=== PATIENT | male | born 2000 | race Caucasian/White ===

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

== ENCOUNTER 2018-08-15 23:38 | Emergency (ER) | payer OTHER ==
[2018-08-16] MEDS ORDERED: SODIUM CHLORIDE 0.9% 1,000 ML IV STA (01:30)
[2018-08-16] MEDS ORDERED: SODIUM CHLORIDE 0.9% 500 ML 500 ML IV STA (01:30)
[2018-08-16 01:42] LABS: Basophils % (A) 0 %; Eosinophils # (A) 0.1 k/uL (0-0.7); Eosinophils % (A) 1 %; HCT 42.8 % (39.0-53.0); Lymphocytes # (A) 1.9 k/uL (1.0-4.8); Lymphocytes % (A) 27 %; MCH 26.8 pg (25.0-35.0); MCHC 32.7 g/dL (31.0-37.0); MCV 82.1 fL (80.0-100.0); Mean Platelet Volume 8.1; Monocytes # (A) 0.4 k/uL (0-1.0); Monocytes % (A) 6 %; Neutrophils # (A) 4.6 k/uL (1.3-7.7); Neutrophils % (A) 64 %; Platelet Count 183 k/uL (150-450); RBC 5.21 m/uL (4.30-5.90); WBC 7.2 k/uL (4.0-11.0)
[2018-08-16 01:51] LABS: Partial Thromboplastin Time 28.1 sec (22.0-30.0)
[2018-08-16 01:52] LABS: ALT 20 U/L (21-72); AST 24 U/L (17-59); African American GFR (CKD) >90 (>60 ml/min/1.73 sqM); Albumin 4.9 g/dL (3.5-5.0); Alkaline Phosphatase 96 U/L (38-126); Anion Gap 10 mmol/L; Blood Urea Nitrogen 19 mg/dL (9-20); Calcium 9.3 mg/dL (8.4-10.2); Carbon Dioxide 27 mmol/L (22-30); Chloride 106 mmol/L (98-107); Glucose 89 mg/dL (74-99); Magnesium 1.9 mg/dL (1.6-2.3); Potassium 3.9 mmol/L (3.5-5.1); Sodium 143 mmol/L (137-145); Total Bilirubin 0.4 mg/dL (0.2-1.3); Total Protein 7.7 g/dL (6.3-8.2)
--- NOTE | 2018-08-16 02:01 | XR ---
EXAM: XR Chest, 2 Views CLINICAL HISTORY: ITS.REASON XR Reason: dysrhythmia TECHNIQUE: Frontal and lateral views of the chest. COMPARISON: None FINDINGS: Hardware: None. Lungs/pleura: Normal. No focal consolidation. No pleural effusion or pneumothorax. Heart/mediastinum: Normal. No cardiomegaly. Soft tissues: Unremarkable. Bones: No acute fracture. Upper abdomen: Normal. IMPRESSION: No acute disease identified.
--- NOTE | 2018-08-16 02:35 | ED ---
Arrhythmia/Palpitations HPI - General Chief Complaint: Arrhythmia/Palpitations Stated Complaint: Palpitations, L Foot infection Time Seen by Provider: 08/16/18 01:02 Source: patient, family Mode of arrival: ambulatory Limitations: no limitations - History of Present Illness Initial Comments: 18-year-old male patient presents to the emergency department today for evaluation of palpitations. Patient states that over the last year he isn't having intermittent episodes of palpitations, shortness of breath, and chest tightness. Patient states that over the last 3 months the episodes are becoming more frequent. Patient states he did have an episode today. Patient states that with the episodes he feels like his heart is racing, his chest becomes tig ht, and he has trouble breathing. Patient states that he was just resting when symptoms started. Denies any nausea or vomiting with this. Denies any dizziness or weakness. Patient does admit to smoking marijuana but states that he has smoked just many times in the past and has never had a reaction. Denies any use of cigarettes. Denies any alcohol use. Denies any use of stimulants such as energy drinks or caffeine. Patient states he follows a very healthy diet. He denies any current symptoms. Patient denies any recent rash, fever, chills, abdominal pain, diarrhea, constipation, back pain, numbness, tingling, hematuria, dysuria, urinary urgency, urinary frequency, headache, visual maria ines nges, or any other complaints. - Related Data Previous Rx's Medication Instructions Recorded Clindamycin HCl 300 mg PO Q6H #28 cap 12/06/17 Sulfamethox-Tmp 800-160Mg [Bactrim 2 each PO Q12HR #28 tab 12/06/17 Ds] Ketoconazole 2% Cream [Nizoral 2%] 1 applic TOPICAL DAILY 14 Days #15 08/16/18 gm Allergies Allergy/AdvReac Type Severity Reaction Status Date / Time Penicillins Allergy Rash/Hives Verified 08/15/18 23:46 piperacillin sodium Allergy Rash/Hives Verified 08/15/18 23:46 [From Zosyn] tazobactam sodium Allergy Rash/Hives Verified 08/15/18 23:46 [From Zosyn] vancomycin Allergy Rash/Hives Verified 08/15/18 23:46 Review of Systems ROS Statement: Those systems with pertinent positive or pertinent negative responses have been documented in the HPI. ROS Other: All systems not noted in ROS Statement are negative. Past Medical History Past Medical History: Asthma History of Any Multi-Drug Resistant Organisms: None Reported Past Surgical History: No Surgical Hx Reported Past Psychological History: ADD/ADHD, Depression Smoking Status: Never smoker Past Alcohol Use History: None Reported Past Drug Use History: None Reported - Past Family History Father Additional Family Medical History / Comment(s): heart disease General Exam Limitations: no limitations General appearance: alert, in no apparent distress, other (Physical well- developed, well-nourished adult male patient in no acute distress. Vital signs upon presentation are temperature 98.4F, pulse 92, respirations 20, blood pressure 132/72, pulse ox 98% on room air.) Eye exam: Present: normal appearance, PERRL, EOMI. Absent: scleral icterus, conjunctival injection, periorbital swelling ENT exam: Present: normal exam, normal oropharynx, mucous membranes moist Respiratory exam: Present: normal lung sounds bilaterally. Absent: respiratory distress, wheezes, rales, rhonchi, stridor Cardiovascular Exam: Present: regular rate, normal rhythm, normal heart sounds. Absent: systolic murmur, diastolic murmur, rubs, gallop, clicks Neurological exam: Present: alert, oriented X3, CN II-XII intact Psychiatric exam: Present: normal affect, normal mood Skin exam: Present: warm, dry, intact, normal color. Absent: rash Course Vital Signs 08/15/18 08/16/18 08/16/18 23:43 01:34 02:47 Temperature 98.4 F 98.2 F Pulse Rate 92 74 80 Respiratory 20 15 18 Rate Blood Pressure 132/72 130/57 111/47 O2 Sat by Pulse 98 96 96 Oximetry Medical Decision Making - Medical Decision Making 18-year-old male patient presents to the emergency department today for evaluation of episodes of palpitations, chest tightness, dyspnea. Patient has a getting these episodes intermittently over the last year, worsening over the last 3 months. He did have one episode today. He denies any exacerbating or relieving factors. States that last approximately 10 minutes. Physical examination is unremarkable. Labs reviewed and are unremarkable. Chest x-ray s hows no acute cardio pulmonary process. EKG showed sinus rhythm. I did discuss the findings and results with the patient. He is instructed to follow-up with a primary care physician for recheck, one has been recommended to him. He is also instructed to follow-up with cardiology for further evaluation. We did discuss Holter monitoring and he should discuss this with his follow-up appointments. Return parameters discussed in detail. He verbalizes understanding and agrees with this plan. - Lab Data Result diagrams: 08/16/18 01:30 08/16/18 01:30 Lab Results 08/16/18 08/16/18 08/16/18 Range/Units 01:30 01:30 01:30 WBC 7.2 (4.0-11.0) k/uL RBC 5.21 (4.30-5.90) m/uL Hgb 14.0 (13.0-17.5) gm/dL Hct 42.8 (39.0-53.0) % MCV 82.1 (80.0-100.0) fL MCH 26.8 (25.0-35.0) pg MCHC 32.7 (31.0-37.0) g/dL RDW 15.0 (11.5-15.5) % Plt Count 183 (150-450) k/uL Neutrophils % 64 % Lymphocytes % 27 % Monocytes % 6 % Eosinophils % 1 % Basophils % 0 % Neutrophils # 4.6 (1.3-7.7) k/uL Lymphocytes # 1.9 (1.0-4.8) k/uL Monocytes # 0.4 (0-1.0) k/uL Eosinophils # 0.1 (0-0.7) k/uL Basophils # 0.0 (0-0.2) k/uL PT 11.0 (9.0-12.0) sec INR 1.0 (<1.2) APTT 28.1 (22.0-30.0) sec Sodium 143 (137-145) mmol/L Potassium 3.9 (3.5-5.1) mmol/L Chloride 106 (98-107) mmol/L Carbon Dioxide 27 (22-30) mmol/L Anion Gap 10 mmol/L BUN 19 (9-20) mg/dL Creatinine 0.74 (0.66-1.25) mg/dL Est GFR (CKD-EPI)AfAm >90 (>60 ml/min/1.73 sqM) Est GFR (CKD-EPI)NonAf >90 (>60 ml/min/1.73 sqM) Glucose 89 (74-99) mg/dL Calcium 9.3 (8.4-10.2) mg/dL Magnesium 1.9 (1.6-2.3) mg/dL Total Bilirubin 0.4 (0.2-1.3) mg/dL AST 24 (17-59) U/L ALT 20 L (21-72) U/L Alkaline Phosphatase 96 (38-126) U/L Troponin I (0.000-0.034) ng/mL Total Protein 7.7 (6.3-8.2) g/dL Albumin 4.9 (3.5-5.0) g/dL TSH 2.310 (0.465-4.680) mIU/L 08/16/18 Range/Units 01:30 WBC (4.0-11.0) k/uL RBC (4.30-5.90) m/uL Hgb (13.0-17.5) gm/dL Hct (39.0-53.0) % MCV (80.0-100.0) fL MCH (25.0-35.0) pg MCHC (31.0-37.0) g/dL RDW (11.5-15.5) % Plt Count (150-450) k/uL Neutrophils % % Lymphocytes % % Monocytes % % Eosinophils % % Basophils % % Neutrophils # (1.3-7.7) k/uL Lymphocytes # (1.0-4.8) k/uL Monocytes # (0-1.0) k/uL Eosinophils # (0-0.7) k/uL Basophils # (0-0.2) k/uL PT (9.0-12.0) sec INR (<1.2) APTT (22.0-30.0) sec Sodium (137-145) mmol/L Potassium (3.5-5.1) mmol/L Chloride (98-107) mmol/L Carbon Dioxide (22-30) mmol/L Anion Gap mmol/L BUN (9-20) mg/dL Creatinine (0.66-1.25) mg/dL Est GFR (CKD-EPI)AfAm (>60 ml/min/1.73 sqM) Est GFR (CKD-EPI)NonAf (>60 ml/min/1.73 sqM) Glucose (74-99) mg/dL Calcium (8.4-10.2) mg/dL Magnesium (1.6-2.3) mg/dL Total Bilirubin (0.2-1.3) mg/dL AST (17-59) U/L ALT (21-72) U/L Alkaline Phosphatase (38-126) U/L Troponin I <0.012 (0.000-0.034) ng/mL Total Protein (6.3-8.2) g/dL Albumin (3.5-5.0) g/dL TSH (0.465-4.680) mIU/L - Radiology Data Radiology results: report reviewed, image reviewed Two-view x-ray of the chest is obtained. Report was reviewed in its entirety. Impression by Dr. Whiting shows no acute disease identified. Disposition Clinical Impression: Palpitations, Dyspnea, Athlete's foot on left Disposition: HOME SELF-CARE Condition: Good Instructions (If sedation given, give patient instructions): Heart Palpitations (ED), Athlete's Foot (ED) Additional Instructions: Use cream to left foot as directed. Follow-up with the labor and delivery registered nurse for further evaluation and possible Holter/heart monitoring. Follow-up with the primary care physician for recheck as soon as possible. Return to the emergency department immediately for any new, worsening, or concerning symptoms. Prescriptions: Ketoconazole 2% Cream [Nizoral 2%] 1 applic TOPICAL DAILY 14 Days #15 gm Is patient prescribed a controlled substance at d/c from ED?: No Referrals: Julianna Finley MD [STAFF PHYSICIAN] - 1-2 days Lynsey Huang MD [STAFF PHYSICIAN] - 1-2 days Time of Disposition: 02:35
[2018-08-16 02:49] VITALS: BP 111/47; PULSE 80; RESP 18; TEMP 98.2
== END 2018-08-16 02:51 | disposition home or self-care (01) ==
LOC: EC 23:38
DX: B35.3 Tinea pedis (principal); R00.2 Palpitations; R06.02 Shortness of breath; R07.89 Other chest pain; F12.90 Cannabis use, unspecified, uncomplicated; Z88.0 Allergy status to penicillin; Z88.1 Allergy status to other antibiotic agents; Z82.49 Family history of ischemic heart disease and other diseases of the circulatory system
CPT/HCPCS: 36415; 71046; 80053; 83735; 84443; 84484; 85025; 85610; 85730; 93005; 96360; 99285

== ENCOUNTER → 2018-09-30 | Outpatient (CLI) | payer OTHER ==
--- NOTE | 2018-09-30 23:05 | US ---
EXAMINATION TYPE: US scrotum with doppler. Grayscale and color Doppler Duplex imaging performed of t kelli scrotum. 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 Low sperm count EXAM MEASUREMENTS: TESTICLES: Right Testicle: 4.9 x 2.5 x 2.8 cm Left Testicle: 4.8 x 2.1 x 3.2 cm EPIDIDYMIS HEAD: Right Epididymis: 1.0 cm Left Epididymis: 1.0 cm Doppler performed to assess for testicular vascularity; good bilateral color flow and waveforms are s een. Presence of hydroceles: No Presence of varicoceles: No Cyst visualized left epidiymis measuring 0.5 cm. IMPRESSION: Incidental 5 mm simple appearing thin-walled cyst left epididymis otherwise unremarkable study. Normal size and symmetric appearing testicles noted. No varicoceles identified.
== END | disposition home or self-care (01) ==
LOC: RADUSWWP 16:18
PROVIDERS: ATTEND Urology
DX: N46.8 Other male infertility (principal)
CPT/HCPCS: 76870; 93975

== ENCOUNTER 2019-02-22 19:17 | Emergency (ER) | payer OTHER ==
[2019-02-22 19:28] VITALS: BP 107/68; PULSE 90; RESP 20; TEMP 99.5
[2019-02-22] MEDS ORDERED: ONDANSETRON 4 MG/2 ML VIAL IVP STA (20:03)
[2019-02-22] MEDS ORDERED: SODIUM CHLORIDE 0.9% 1,000 ML IV STA (20:03)
[2019-02-22 20:14] LABS: Basophils % (A) 1 %; Eosinophils # (A) 0.2 k/uL (0-0.7); Eosinophils % (A) 2 %; HCT 50.7 % (39.0-53.0); HGB 16.9 gm/dL (13.0-17.5); Lymphocytes # (A) 0.3 k/uL (1.0-4.8); Lymphocytes % (A) 3 %; MCH 27.4 pg (25.0-35.0); MCHC 33.4 g/dL (31.0-37.0); MCV 82.1 fL (80.0-100.0); Mean Platelet Volume 8.2; Monocytes # (A) 0.2 k/uL (0-1.0); Monocytes % (A) 3 %; Neutrophils # (A) 7.4 k/uL (1.3-7.7); Neutrophils % (A) 91 %; Platelet Count 153 k/uL (150-450); RBC 6.17 m/uL (4.30-5.90); RDW 13.3 % (11.5-15.5); WBC 8.2 k/uL (3.8-10.6)
[2019-02-22 20:28] LABS: ALT 14 U/L (4-49); AST 37 U/L (17-59); African American GFR (CKD) >90 (>60 ml/min/1.73 sqM); Alkaline Phosphatase 77 U/L (38-126); Anion Gap 11 mmol/L; Blood Urea Nitrogen 16 mg/dL (9-20); Calcium 9.1 mg/dL (8.4-10.2); Carbon Dioxide 23 mmol/L (22-30); Chloride 106 mmol/L (98-107); Glucose 90 mg/dL (74-99); Non-African American GFR(CKD) >90 (>60 ml/min/1.73 sqM); Sodium 140 mmol/L (137-145); Total Bilirubin 1.5 mg/dL (0.2-1.3); Total Protein 8.4 g/dL (6.3-8.2)
[2019-02-22 20:37] LABS: Potassium 4.8 mmol/L (3.5-5.1)
[2019-02-22] MEDS ORDERED: ONDANSETRON 4 MG ODT STARTER PACK 2 TAB BTL PO STA (20:53)
--- NOTE | 2019-02-22 20:53 | ED ---
Nausea/Vomiting/Diarrhea HPI - General Chief complaint: Nausea/Vomiting/Diarrhea Stated complaint: Vomiting Time Seen by Provider: 02/22/19 19:32 Source: patient Mode of arrival: ambulatory Limitations: no limitations - History of Present Illness Initial comments: Patient is a 19-year-old male presenting to emergency Department with complaints of nausea, vomiting, abdominal cramping started this morning. Patient states he woke up with the symptoms and they have been persisting throughout the day. Patient describes his abdominal pain as mild cramping and discomfort. He has some up approximately 3 times today. Patient states he feels really dehydrated. He has no other complaints at this time. No history of fever, chills. Does admit to mild diarrhea today. No history of abdominal surgeries. He has no other complaints at this time. Upon arrival to ER, his vital signs are stable. - Related Data Previous Rx's Medication Instructions Recorded Clindamycin HCl 300 mg PO Q6H #28 cap 12/06/17 Sulfamethox-Tmp 800-160Mg [Bactrim 2 each PO Q12HR #28 tab 12/06/17 Ds] Ketoconazole 2% Cream [Nizoral 2%] 1 applic TOPICAL DAILY 14 Days #15 08/16/18 gm Allergies Allergy/AdvReac Type Severity Reaction Status Date / Time Penicillins Allergy Rash/Hives Verified 02/22/19 19:26 piperacillin sodium Allergy Rash/Hives Verified 02/22/19 19:26 [From Zosyn] tazobactam sodium Allergy Rash/Hives Verified 02/22/19 19:26 [From Zosyn] vancomycin Allergy Rash/Hives Verified 02/22/19 19:26 Review of Systems ROS Statement: Those systems with pertinent positive or pertinent negative responses have been documented in the HPI. ROS Other: All systems not noted in ROS Statement are negative. Past Medical History Past Medical History: Asthma History of Any Multi-Drug Resistant Organisms: None Reported Past Surgical History: No Surgical Hx Reported Past Psychological History: ADD/ADHD, Depression Smoking Status: Never smoker Past Alcohol Use History: None Reported Past Drug Use History: Marijuana - Past Family History Father Additional Family Medical History / Comment(s): heart disease General Exam - General Exam Comments Initial Comments: GENERAL: Well-appearing, well-nourished and in no acute distress. HEAD: Atraumatic, normocephalic. EYES: Pupils equal round and reactive to light, extraocular movements intact, sclera anicteric, conjunctiva are normal. ENT: TMs normal, nares patent, oropharynx clear without exudates. Moist mucous membranes. NECK: Normal range of motion, supple without lymphadenopathy or JVD. LUNGS: Breath sounds clear to auscultation bilaterally and equal. No wheezes rales or rhonchi. HEART: Regular rate and rhythm without murmurs, rubs or gallops. ABDOMEN: Very mild epigastric tenderness on palpation, no severe abdominal pain. Soft, normoactive bowel sounds. No guarding, no rebound. No masses appreciated. EXTREMITIES: Normal range of motion, no pitting or edema. No clubbing or cyanosis. NEUROLOGICAL: Normal speech, normal gait. PSYCH: Normal mood, normal affect. SKIN: Warm, Dry, normal turgor, no rashes or lesions noted. Limitations: no limitations Course Vital Signs 02/22/19 19:24 Temperature 99.5 F Pulse Rate 90 Respiratory 20 Rate Blood Pressure 107/68 O2 Sat by Pulse 94 L Oximetry Medical Decision Making - Medical Decision Making Patient is a 19-year-old male presenting with nausea, vomiting, abdominal cramping since this morning. Vital signs are stable. Lab work shows no acute abnormalities. Patient was given fluids and Zofran and reports improvement in symptoms. On reexamination he had no belly pain. I discussed with patient this most likely gastroenteritis. Patient will be given Zofran to go home with and will continue to increase fluid intake. He is in agreement with this plan of care. Return parameters were discussed with the patient he verbalizes understanding. - Lab Data Result diagrams: 02/22/19 19:54 02/22/19 19:54 Lab Results 02/22/19 02/22/19 Range/Units 19:54 19:54 WBC 8.2 (3.8-10.6) k/uL RBC 6.17 H (4.30-5.90) m/uL Hgb 16.9 (13.0-17.5) gm/dL Hct 50.7 (39.0-53.0) % MCV 82.1 (80.0-100.0) fL MCH 27.4 (25.0-35.0) pg MCHC 33.4 (31.0-37.0) g/dL RDW 13.3 (11.5-15.5) % Plt Count 153 (150-450) k/uL Neutrophils % 91 % Lymphocytes % 3 % Monocytes % 3 % Eosinophils % 2 % Basophils % 1 % Neutrophils # 7.4 (1.3-7.7) k/uL Lymphocytes # 0.3 L (1.0-4.8) k/uL Monocytes # 0.2 (0-1.0) k/uL Eosinophils # 0.2 (0-0.7) k/uL Basophils # 0.0 (0-0.2) k/uL Sodium 140 (137-145) mmol/L Potassium 4.8 (3.5-5.1) mmol/L Chloride 106 (98-107) mmol/L Carbon Dioxide 23 (22-30) mmol/L Anion Gap 11 mmol/L BUN 16 (9-20) mg/dL Creatinine 0.73 (0.66-1.25) mg/dL Est GFR (CKD-EPI)AfAm >90 (>60 ml/min/1.73 sqM) Est GFR (CKD-EPI)NonAf >90 (>60 ml/min/1.73 sqM) Glucose 90 (74-99) mg/dL Calcium 9.1 (8.4-10.2) mg/dL Total Bilirubin 1.5 H (0.2-1.3) mg/dL AST 37 (17-59) U/L ALT 14 (4-49) U/L Alkaline Phosphatase 77 (38-126) U/L Total Protein 8.4 H (6.3-8.2) g/dL Albumin 5.0 (3.5-5.0) g/dL Disposition Clinical Impression: Nausea & vomiting, Gastroenteritis Disposition: HOME SELF-CARE Condition: Stable Instructions (If sedation given, give patient instructions): Acute Nausea and Vomiting (ED) Additional Instructions: Please return to the Emergency Department if symptoms worsen or any other concerns. Take Zofran as needed for nausea. Follow-up with PCP Is patient prescribed a controlled substance at d/c from ED?: No Referrals: Florentino Hartman MD [Primary Care Provider] - 1-2 days
== END 2019-02-22 20:56 | disposition home or self-care (01) ==
LOC: EC 19:17
DX: K52.9 Noninfective gastroenteritis and colitis, unspecified (principal); Z88.0 Allergy status to penicillin; Z88.1 Allergy status to other antibiotic agents
CPT/HCPCS: 36415; 80053; 85025; 99283; 96374; 96361; J2405; S0119

== ENCOUNTER 2020-01-05 20:34 | Emergency (ER) | payer OTHER ==
[2020-01-05 20:43] VITALS: RESP 18
[2020-01-05] MEDS ORDERED: IPRATROPIUM-ALBUTEROL 3 ML NEB INHALATION STA (21:01)
--- NOTE | 2020-01-05 21:18 | XR ---
EXAMINATION TYPE: XR chest 2V DATE OF EXAM: 01/05/2020 COMPARISON: 08/16/2018 HISTORY: Cough and wheezing TECHNIQUE: 2 views FINDINGS: Heart and mediastinum are normal. Lungs are clear. Diaphragm is normal. Bony thorax appears normal. IMPRESSION: Normal chest. No change.
[2020-01-05 22:07] VITALS: BP 132/75; PULSE 71; TEMP 97.5
--- NOTE | 2020-01-05 22:17 | ED ---
URI HPI - General Chief Complaint: Upper Respiratory Infection Stated Complaint: SOB Time Seen by Provider: 01/05/20 20:44 Source: patient Mode of arrival: ambulatory Limitations: no limitations - History of Present Illness Initial Comments: Patient is a 19-year-old male presenting to emergency Department with complaints of upper respiratory symptoms that's been going on for over 1 month. Patient states he has been having a mild cough, some mild shortness of breath as been not going away. He states some mild congestion. He states he tried ago for a 4 mile run the other day and was able to complete the run but felt very fatigued afterwards. Patient states he was recently tested for Covid 2 days ago and is awaiting the results. He has had no fevers, no chest pains, no nausea or vomiting. He states he does have a history of mild asthma but takes no medications for this. He feels like he does have some mild wheezing going on. Patient does admit to smoking marijuana on a regular basis. Patient has no further complaints at this time. Upon arrival to the ER, his vital signs are stable, afebrile. - Related Data Previous Rx's Medication Instructions Recorded Albuterol Inhaler [Ventolin Hfa 1 puff INHALATION RT-QID PRN #1 01/05/20 Inhaler] puff Azithromycin [Zithromax Z-pack (6 0 mg PO DIRECTED #1 pack 01/05/20 tabs)] methylPREDNISolone [Medrol Dose 4 mg PO DIRECTED #1 pack 01/05/20 Pack] Allergies Allergy/AdvReac Type Severity Reaction Status Date / Time Penicillins Allergy Rash/Hives Verified 01/05/20 21:26 piperacillin sodium Allergy Rash/Hives Verified 01/05/20 21:26 [From Zosyn] tazobactam sodium Allergy Rash/Hives Verified 01/05/20 21:26 [From Zosyn] vancomycin Allergy Rash/Hives Verified 01/05/20 21:26 Review of Systems ROS Statement: Those systems with pertinent positive or pertinent negative responses have been documented in the HPI. ROS Other: All systems not noted in ROS Statement are negative. Past Medical History Past Medical History: Asthma History of Any Multi-Drug Resistant Organisms: None Reported Past Surgical History: No Surgical Hx Reported Past Psychological History: ADD/ADHD, Depression Smoking Status: Current every day smoker Past Alcohol Use History: Daily, Heavy Past Drug Use History: Marijuana - Past Family History Father Additional Family Medical History / Comment(s): heart disease General Exam - General Exam Comments Initial Comments: GENERAL: Patient is well-developed and well-nourished. Patient is nontoxic and in no acute distress. HEAD: Atraumatic, normocephalic. EYES: Pupils equal round and reactive to light, extraocular movements intact, sclera anicteric, conjunctiva are normal. Eyelids were unremarkable. ENT: TMs normal, nares patent, oropharynx clear without exudates. Moist mucous membranes. NECK: Normal range of motion, supple without lymphadenopathy or JVD. LUNGS: Unlabored respirations. Scattered wheezes in the upper go. HEART: Regular rate and rhythm without murmurs, rubs or gallops. ABDOMEN: Soft, nontender, normoactive bowel sounds. No guarding, no rebound. No masses appreciated. : Deferred MUSCULOSKELETAL: Normal extremities with adequate strength and normal range of motion, no pitting or edema. No clubbing or cyanosis. NEUROLOGICAL: Patient is alert and oriented x 3. Motor and sensory are also intact. Cranial nerves II through XII grossly intact. Symmetrical smile. Normal speech, normal gait. PSYCH: Normal mood, normal affect. SKIN: Warm, Dry, normal turgor, no rashes or lesions noted. Limitations: no limitations Course Vital Signs 01/05/20 01/05/20 01/05/20 20:39 20:57 21:46 Temperature 99.3 F Pulse Rate 68 70 Respiratory 18 18 Rate Blood Pressure 175/83 O2 Sat by Pulse 97 Oximetry 01/05/20 01/05/20 21:54 22:06 Temperature 97.5 F L Pulse Rate 70 71 Respiratory 18 Rate Blood Pressure 132/75 O2 Sat by Pulse 95 Oximetry Medical Decision Making - Medical Decision Making Patient is a 19-year-old male here with upper respiratory type symptoms for the past month. He does have history of mild asthma, admits to smoking marijuana regular. Vital signs are stable, he is afebrile. Patient's exam is unremarka ble for for some mild scattered wheezes. I did give him a breathing treatment with some improvement in his symptoms. Chest x-ray shows no acute process. I discussed the patient is most likely an upper respiratory infection. Given the length of symptoms I will start him on a Z-Cliff, steroids and give him an albuterol inhaler. Patient is in agreement with this plan of care. He is stable for discharge. He can follow up with his PCP. Return parameters were discussed with the patient he verbalizes understanding. Disposition Clinical Impression: URI (upper respiratory infection) Disposition: HOME SELF-CARE Condition: Stable Instructions (If sedation given, give patient instructions): Upper Respiratory Infection (ED) Additional Instructions: Please return to the Emergency Department if symptoms worsen or any other concerns. Take antibiotic and steroids as prescribed. May use inhaler as needed for shortness of breath or cough. Follow-up with your PCP. Prescriptions: methylPREDNISolone [Medrol Dose Pack] 4 mg PO DIRECTED #1 pack Albuterol Inhaler [Ventolin Hfa Inhaler] 1 puff INHALATION RT-QID PRN #1 puff PRN Reason: Shortness Of Breath Azithromycin [Zithromax Z-pack (6 tabs)] 0 mg PO DIRECTED #1 pack Is patient prescribed a controlled substance at d/c from ED?: No Referrals: None,Stated [Primary Care Provider] - 1-2 days
== END 2020-01-05 22:27 | disposition home or self-care (01) ==
LOC: EC 20:34
DX: J06.9 Acute upper respiratory infection, unspecified (principal); R06.2 Wheezing; F12.90 Cannabis use, unspecified, uncomplicated; F17.200 Nicotine dependence, unspecified, uncomplicated; Z88.0 Allergy status to penicillin; Z88.8 Allergy status to other drugs, medicaments and biological substances; Z88.1 Allergy status to other antibiotic agents
CPT/HCPCS: 71046; 94640; 99283

== ENCOUNTER 2020-02-03 16:54 | Emergency (ER) | payer OTHER ==
[2020-02-03 17:03] VITALS: RESP 16; TEMP 98.3
[2020-02-03] MEDS ORDERED: ADENOSINE 3 MG/ML 2 ML VIAL IVP STA ×2 (17:08→17:13)
[2020-02-03] MEDS ORDERED: SODIUM CHLORIDE 0.9% 1,000 ML IV STA ×2 (17:09)
[2020-02-03] MEDS ORDERED: ASPIRIN 81 MG PO STA (17:09)
[2020-02-03] MEDS ORDERED: DILTIAZEM DRIP BOLUS FROM BAG 1 MG SOLN IV ONE (17:20)
--- NOTE | 2020-02-03 17:23 | ED ---
Arrhythmia/Palpitations HPI - General Chief Complaint: Arrhythmia/Palpitations Stated Complaint: Palpitations Time Seen by Provider: 02/03/20 17:06 Source: patient, RN notes reviewed Mode of arrival: ambulatory Limitations: no limitations - History of Present Illness Initial Comments: This is a 19-year-old male with no prior history of heart disease is reports palpitations going on since this morning. He does admit to drinking whiskey heavily. He came in with complaints of palpitations he denies any chest pain on my questioning. He also was smoking marijuana today. He also reportedly worked out very heavily. MD Complaint: rapid heart beat - Related Data Previous Rx's Medication Instructions Recorded Albuterol Inhaler [Ventolin Hfa 1 puff INHALATION RT-QID PRN #1 01/05/20 Inhaler] puff Allergies Allergy/AdvReac Type Severity Reaction Status Date / Time Penicillins Allergy Rash/Hives Verified 02/03/20 17:58 piperacillin sodium Allergy Rash/Hives Verified 02/03/20 17:58 [From Zosyn] tazobactam sodium Allergy Rash/Hives Verified 02/03/20 17:58 [From Zosyn] vancomycin Allergy Rash/Hives Verified 02/03/20 17:58 Review of Systems ROS Statement: Those systems with pertinent positive or pertinent negative responses have been documented in the HPI. ROS Other: All systems not noted in ROS Statement are negative. Past Medical History Past Medical History: Asthma History of Any Multi-Drug Resistant Organisms: None Reported Past Surgical History: No Surgical Hx Reported Past Psychological History: ADD/ADHD, Depression Smoking Status: Current every day smoker Past Alcohol Use History: Daily, Heavy Past Drug Use History: Marijuana - Past Family History Father Additional Family Medical History / Comment(s): heart disease General Exam - General Exam Comments Initial Comments: This a well-developed sec appearing male who is awake alert but lethargic with the smell of alcohol conjoiners on his breath Limitations: no limitations General appearance: alert, appears intoxicated, anxious, lethargic Head exam: Present: atraumatic, normocephalic, normal inspection Eye exam: Present: normal appearance, PERRL, EOMI. Absent: scleral icterus, conjunctival injection, periorbital swelling ENT exam: Present: normal exam, mucous membranes moist Neck exam: Present: normal inspection, full ROM, other (No stridor JVD or bruits). Absent: tenderness, meningismus, lymphadenopathy Respiratory exam: Present: normal lung sounds bilaterally. Absent: respiratory distress, wheezes, rales, rhonchi, stridor Cardiovascular Exam: Present: normal rhythm, tachycardia. Absent: systolic murmur, diastolic murmur, rubs, gallop, clicks GI/Abdominal exam: Present: soft, normal bowel sounds. Absent: distended, tenderness, guarding, rebound, rigid Extremities exam: Present: normal inspection, full ROM, normal capillary refill. Absent: tenderness, pedal edema, joint swelling, calf tenderness Back exam: Present: normal inspection Neurological exam: Present: alert, oriented X3, CN II-XII intact Psychiatric exam: Present: normal affect, normal mood Skin exam: Present: warm, dry, intact, normal color. Absent: rash Course Vital Signs 02/03/20 02/03/20 02/03/20 16:56 17:30 17:33 Temperature 98.3 F Pulse Rate 170 H 123 H Pulse Rate [ 134 H [facility] ] Respiratory 16 16 Rate Blood Pressure 145/73 137/68 O2 Sat by Pulse 99 100 Oximetry 02/03/20 02/03/20 02/03/20 18:00 18:30 19:00 Temperature Pulse Rate 123 H 115 H 122 H Pulse Rate [ [facility] ] Respiratory 16 16 16 Rate Blood Pressure 133/87 139/67 133/70 O2 Sat by Pulse 100 100 98 Oximetry Medical Decision Making - Medical Decision Making There is no plan was to admit the patient was improving he initially failed adenosine for rate control fluids and IV Cardizem did accomplish this. He did demonstrate evidence of alcohol intoxication. I had discussed the case with who did agree to accept the patient for admission patient did not want to stay and left AGAINST MEDICAL ADVICE. He did demonstrate decision making capacity. He was able to hold he was awake alert oriented 3. - Lab Data Result diagrams: 02/03/20 17:15 02/03/20 17:15 Lab Results 02/03/20 02/03/20 02/03/20 Range/Units 17:15 17:15 17:15 WBC 10.4 (3.8-10.6) k/uL RBC 5.75 (4.30-5.90) m/uL Hgb 16.4 (13.0-17.5) gm/dL Hct 49.8 (39.0-53.0) % MCV 86.6 (80.0-100.0) fL MCH 28.4 (25.0-35.0) pg MCHC 32.8 (31.0-37.0) g/dL RDW 14.1 (11.5-15.5) % Plt Count 379 (150-450) k/uL MPV 7.8 Neutrophils % 78 % Lymphocytes % 16 % Monocytes % 4 % Eosinophils % 0 % Basophils % 1 % Neutrophils # 8.1 H (1.3-7.7) k/uL Lymphocytes # 1.6 (1.0-4.8) k/uL Monocytes # 0.4 (0-1.0) k/uL Eosinophils # 0.0 (0-0.7) k/uL Basophils # 0.1 (0-0.2) k/uL PT 11.3 (9.0-12.0) sec INR 1.1 (<1.2) APTT 25.3 (22.0-30.0) sec D-Dimer <0.17 (<0.60) mg/L FEU Sodium 143 (137-145) mmol/L Potassium 4.0 (3.5-5.1) mmol/L Chloride 108 H (98-107) mmol/L Carbon Dioxide 24 (22-30) mmol/L Anion Gap 11 mmol/L BUN 6 L (9-20) mg/dL Creatinine 1.01 (0.66-1.25) mg/dL Est GFR (CKD-EPI)AfAm >90 (>60 ml/min/1.73 sqM) Est GFR (CKD-EPI)NonAf >90 (>60 ml/min/1.73 sqM) Glucose 129 H (74-99) mg/dL Calcium 9.2 (8.4-10.2) mg/dL Magnesium 2.0 (1.6-2.3) mg/dL Total Bilirubin 0.4 (0.2-1.3) mg/dL AST 37 (17-59) U/L ALT 24 (4-49) U/L Alkaline Phosphatase 70 (38-126) U/L Creatine Kinase 550 H (55-170) U/L Troponin I (0.000-0.034) ng/mL Total Protein 8.2 (6.3-8.2) g/dL Albumin 4.7 (3.5-5.0) g/dL TSH 0.543 (0.465-4.680) mIU/L Serum Alcohol 159 mg/dL 02/03/20 Range/Units 17:15 WBC (3.8-10.6) k/uL RBC (4.30-5.90) m/uL Hgb (13.0-17.5) gm/dL Hct (39.0-53.0) % MCV (80.0-100.0) fL MCH (25.0-35.0) pg MCHC (31.0-37.0) g/dL RDW (11.5-15.5) % Plt Count (150-450) k/uL MPV Neutrophils % % Lymphocytes % % Monocytes % % Eosinophils % % Basophils % % Neutrophils # (1.3-7.7) k/uL Lymphocytes # (1.0-4.8) k/uL Monocytes # (0-1.0) k/uL Eosinophils # (0-0.7) k/uL Basophils # (0-0.2) k/uL PT (9.0-12.0) sec INR (<1.2) APTT (22.0-30.0) sec D-Dimer (<0.60) mg/L FEU Sodium (137-145) mmol/L Potassium (3.5-5.1) mmol/L Chloride (98-107) mmol/L Carbon Dioxide (22-30) mmol/L Anion Gap mmol/L BUN (9-20) mg/dL Creatinine (0.66-1.25) mg/dL Est GFR (CKD-EPI)AfAm (>60 ml/min/1.73 sqM) Est GFR (CKD-EPI)NonAf (>60 ml/min/1.73 sqM) Glucose (74-99) mg/dL Calcium (8.4-10.2) mg/dL Magnesium (1.6-2.3) mg/dL Total Bilirubin (0.2-1.3) mg/dL AST (17-59) U/L ALT (4-49) U/L Alkaline Phosphatase (38-126) U/L Creatine Kinase (55-170) U/L Troponin I <0.012 (0.000-0.034) ng/mL Total Protein (6.3-8.2) g/dL Albumin (3.5-5.0) g/dL TSH (0.465-4.680) mIU/L Serum Alcohol mg/dL - EKG Data -: EKG Interpreted by Me EKG shows normal: sinus rhythm EKG Comments: Says tachycardia rate 159. Interval 122 QRS duration 70 QT since QTC to 48/403 right axis deviation Disposition Clinical Impression: Sinus tachycardia, Alcohol intoxication, Dehydration Disposition: Left Against Medical Advice Condition: Fair Is patient prescribed a controlled substance at d/c from ED?: No Referrals: None,Stated [Primary Care Provider] - 1-2 days
[2020-02-03] MEDS ORDERED: DILTIAZEM 125 MG in SODIUM CHLORIDE 0.9% 100 ML IV SCH (17:30)
[2020-02-03 17:32] LABS: Basophils # (A) 0.1 k/uL (0-0.2); Basophils % (A) 1 %; Eosinophils % (A) 0 %; HCT 49.8 % (39.0-53.0); HGB 16.4 gm/dL (13.0-17.5); Lymphocytes # (A) 1.6 k/uL (1.0-4.8); Lymphocytes % (A) 16 %; MCH 28.4 pg (25.0-35.0); MCHC 32.8 g/dL (31.0-37.0); MCV 86.6 fL (80.0-100.0); Mean Platelet Volume 7.8; Monocytes # (A) 0.4 k/uL (0-1.0); Monocytes % (A) 4 %; Neutrophils # (A) 8.1 k/uL (1.3-7.7); Neutrophils % (A) 78 %; Platelet Count 379 k/uL (150-450); RBC 5.75 m/uL (4.30-5.90); RDW 14.1 % (11.5-15.5); WBC 10.4 k/uL (3.8-10.6)
[2020-02-03 17:40] LABS: Chloride 108 mmol/L (98-107)
[2020-02-03 17:43] LABS: ALT 24 U/L (4-49); AST 37 U/L (17-59); African American GFR (CKD) >90 (>60 ml/min/1.73 sqM); Albumin 4.7 g/dL (3.5-5.0); Alkaline Phosphatase 70 U/L (38-126); Anion Gap 11 mmol/L; Blood Urea Nitrogen 6 mg/dL (9-20); Calcium 9.2 mg/dL (8.4-10.2); Carbon Dioxide 24 mmol/L (22-30); Creatine Kinase 550 U/L (55-170); Glucose 129 mg/dL (74-99); Non-African American GFR(CKD) >90 (>60 ml/min/1.73 sqM); Sodium 143 mmol/L (137-145); Total Bilirubin 0.4 mg/dL (0.2-1.3); Total Protein 8.2 g/dL (6.3-8.2)
[2020-02-03 17:45] LABS: Alcohol 159 mg/dL
[2020-02-03 18:06] LABS: D-Dimer <0.17 mg/L FEU (<0.60); INR 1.1 (<1.2); Partial Thromboplastin Time 25.3 sec (22.0-30.0); Prothrombin Time 11.3 sec (9.0-12.0)
--- NOTE | 2020-02-03 18:17 | XR ---
EXAMINATION TYPE: XR chest 2V DATE OF EXAM: 02/03/2020 COMPARISON: 01/05/2020 HISTORY: Cough Heart and mediastinum are normal. Lungs are clear. Diaphragm is normal. Bony thorax appears normal. There are chest leads. IMPRESSION: Normal chest. No change.
[2020-02-03 19:07] VITALS: BP 133/70; PULSE 122
== END 2020-02-03 20:00 | disposition left against medical advice (07) ==
LOC: EC 16:54
DX: F10.129 Alcohol abuse with intoxication, unspecified (principal); E86.0 Dehydration; F17.200 Nicotine dependence, unspecified, uncomplicated; Z88.1 Allergy status to other antibiotic agents; Z53.20 Procedure and treatment not carried out because of patient's decision for unspecified reasons; Z82.49 Family history of ischemic heart disease and other diseases of the circulatory system
CPT/HCPCS: 36415; 93005; 85379; 80053; 82550; 83735; 84443; 84484; 85025; 85610; 85730; 80320; 71046; 99285; 96365; 96366; 96375; 96376; J0153

== ENCOUNTER 2021-04-21 12:20 | Emergency (ER) | payer OTHER ==
[2021-04-21 12:23] VITALS: TEMP 97.1
[2021-04-21] MEDS ORDERED: SODIUM CHLORIDE 0.9% 1,000 ML IV STA ×2 (12:41→13:31)
[2021-04-21] MEDS ORDERED: ONDANSETRON 4 MG/2 ML VIAL IVP STA (12:41)
[2021-04-21 12:56] LABS: Basophils % (A) 0 %; Eosinophils # (A) 0.4 k/uL (0-0.7); Eosinophils % (A) 3 %; HGB 18.2 gm/dL (13.0-17.5); Lymphocytes # (A) 0.5 k/uL (1.0-4.8); Lymphocytes % (A) 4 %; MCH 27.3 pg (25.0-35.0); MCHC 32.7 g/dL (31.0-37.0); MCV 83.5 fL (80.0-100.0); Mean Platelet Volume 8.1; Monocytes # (A) 0.4 k/uL (0-1.0); Monocytes % (A) 3 %; Neutrophils # (A) 12.2 k/uL (1.3-7.7); Neutrophils % (A) 90 %; Platelet Count 259 k/uL (150-450); RBC 6.66 m/uL (4.30-5.90); RDW 14.9 % (11.5-15.5); WBC 13.6 k/uL (3.8-10.6)
[2021-04-21 13:01] LABS: HCT 55.6 % (39.0-53.0)
--- NOTE | 2021-04-21 13:01 | ED ---
General Adult HPI - General Chief complaint: Nausea/Vomiting/Diarrhea Stated complaint: Vomiting Time Seen by Provider: 04/21/21 12:30 Source: patient Mode of arrival: ambulatory Limitations: no limitations - History of Present Illness Initial comments: This 21-year-old male presents emergency Department with vomiting that began at 6:00 AM today and diarrhea that began on Sunday afternoon. Patient states he was woken up from sleeping at 6 AM with nausea and generalized abdominal pain. Patient states since then he has been vomiting at least 3-4 times an hour. Patient states he has had episodic diarrhea over the last few days with a total of 8-10 episodes. Patient states he does use marijuana daily and has for the last 3 years however this never happened him in the past. Patient states 2 weeks ago he did begin eating five raw eggs for breakfast before he works out which she did used to do a couple years ago and never had any issues. Patient states he was eating and drinking normally up until this morning when he was up from his sleep. Patient denies any new foods. Patient denies any other drug or alcohol use other than daily marijuana use. Patient denies any localized abdominal pain and states that his whole abdomen just aches. He denies any radiation to his groin, chest or back. He denies any chest pain, shortness of breath, back or neck pain, change in his bladder, fever, hemoptysis, hematochezia, headache, lightheadedness, dizziness, weakness. - Related Data Home Medications Medication Instructions Recorded Confirmed traZODone HCL [Desyrel] 50 mg PO HS 04/21/21 04/21/21 Previous Rx's Medication Instructions Recorded Ondansetron Odt [Zofran ODT] 4 mg PO Q8HR PRN #10 tab 04/21/21 Allergies Allergy/AdvReac Type Severity Reaction Status Date / Time Penicillins Allergy Rash/Hives Verified 04/21/21 12:50 piperacillin sodium Allergy Rash/Hives Verified 04/21/21 12:50 [From Zosyn] tazobactam sodium Allergy Rash/Hives Verified 04/21/21 12:50 [From Zosyn] vancomycin Allergy Rash/Hives Verified 04/21/21 12:50 Review of Systems ROS Statement: Those systems with pertinent positive or pertinent negative responses have been documented in the HPI. ROS Other: All systems not noted in ROS Statement are negative. Past Medical History Past Medical History: Asthma History of Any Multi-Drug Resistant Organisms: None Reported Past Surgical History: No Surgical Hx Reported Past Psychological History: ADD/ADHD, Depression Smoking Status: Current every day smoker Past Alcohol Use History: Daily, Heavy Past Drug Use History: Marijuana - Past Family History Father Additional Family Medical History / Comment(s): heart disease General Exam Limitations: no limitations General appearance: alert, in no apparent distress (Patient vomiting while sitting on the bed) Head exam: Present: atraumatic, normocephalic, normal inspection Eye exam: Present: normal appearance, PERRL, EOMI. Absent: scleral icterus, conjunctival injection, periorbital swelling Pupils: Present: normal accommodation ENT exam: Present: normal exam, mucous membranes moist Neck exam: Present: normal inspection, full ROM. Absent: tenderness, meningismus, lymphadenopathy Respiratory exam: Present: normal lung sounds bilaterally. Absent: respiratory distress, wheezes, rales, rhonchi, stridor Cardiovascular Exam: Present: regular rate, normal rhythm, normal heart sounds. Absent: systolic murmur, diastolic murmur, rubs, gallop, clicks GI/Abdominal exam: Present: soft, normal bowel sounds. Absent: distended, tenderness (Patient without any abdominal tenderness to palpation. Patient just states it is diffuse discomfort since vomiting this morning), guarding, rebound, rigid Extremities exam: Present: normal inspection, full ROM, normal capillary refill. Absent: tenderness, pedal edema, joint swelling, calf tenderness Back exam: Present: full ROM. Absent: CVA tenderness (R), CVA tenderness (L), paraspinal tenderness, vertebral tenderness Neurological exam: Present: alert, oriented X3, CN II-XII intact Psychiatric exam: Present: normal affect, normal mood Skin exam: Present: warm, dry, intact, normal color. Absent: rash Course Vital Signs 04/21/21 12:21 Temperature 97.1 F L Pulse Rate 92 Respiratory 20 Rate Blood Pressure 111/71 O2 Sat by Pulse 100 Oximetry - Reevaluation(s) Reevaluation #1: 04/21/21 13:25 On reexamination, patient states he still does feel nauseous, however he has not vomited since being here. He states his nausea has significantly decreased. 04/21/21 13:54 On reevaluation, patient states he does have some generalized abdominal pain and is still a little bit nauseous. Patient states he is thirsty and is requesting water and tashia yogi. 04/21/21 14:01 And evaluation, patient was able to keep down water and tashia yogi. Patient states he is feeling much better at this time. I did order capsaicin cream for abdomen to see if improvement. I did discuss possible cannabinoid hyperemesis syndrome, viral GI syndrome or possibly from the five raw eggs he eats daily 04/21/21 14:21 On reevaluation, after capsaicin cream was administered patient's abdomen he states he is no longer nauseous and does not have any abdominal pain or discomfort at this time. I did instruct patient that I need a urine sample and he requested a Covid test so he can go back to work. 04/21/21 14:59 And examination, patient states he does have a little bit of a dull headache. He states most of his nausea is gone like one more dose of something before he goes just in case. Toradol and Reglan given patient prior to discharge along with Zofran prescription. Patient did drink tashia yogi, water and did eat saltine crackers without vomiting. Instructed patient to return if he is unable to keep any fluids or solids, fever presents or abdominal pain presents. Patient verbally agreed to plan 04/21/21 15:19 After receiving pain medications and Reglan, patient states he does feel much better at this time. Patient is requesting to go home and stated he would return if any of his symptoms return anything new occurs. Medical Decision Making - Medical Decision Making This 21-year-old male presents to the emergency department with episodic diarrhea 3 days along with nausea and vomiting that began at 6 AM. Patient with a blood cells 13.6, neutrophils 12.2, BUN 22, magnesium 1.3, total protein 8.4. Urine with protein and 1+ ketones. Coronavirus negative. 2 L normal saline along with Zofran, Toradol, Reglan and capsaicin cream given to patient. Prior to discharge, patient did not have any nausea or vomiting. He denied any abdominal pain. He denied any episode of diarrhea today. Patient did not vomit while here in the emergency department after getting Zofran and fluids. Informed patient does could be from daily marijuana use, viral illness or from either eye eggs. I did instruct patient does could be from his daily marijuana use and informed him about cannabinoid hyperemesis syndrome. I also informed patient to stop eating 5 raw eggs for breakfast informed him to stop smoking marijuana. Instructed patient to return with any new, worsening, or concerning symptoms. I did give Zofran to patient for home instruct him to use as directed. Instructed patient to follow-up with primary care provider next 1-2 days. Patient verbally agree to plan. Patient sent home in stable condition. Case discussed with my attending, - Lab Data Result diagrams: 04/21/21 12:49 04/21/21 12:49 Lab Results 04/21/21 04/21/21 04/21/21 Range/Units 12:49 12:49 14:10 WBC 13.6 H (3.8-10.6) k/uL RBC 6.66 H (4.30-5.90) m/uL Hgb 18.2 H (13.0-17.5) gm/dL Hct 55.6 H (39.0-53.0) % MCV 83.5 (80.0-100.0) fL MCH 27.3 (25.0-35.0) pg MCHC 32.7 (31.0-37.0) g/dL RDW 14.9 (11.5-15.5) % Plt Count 259 (150-450) k/uL MPV 8.1 Neutrophils % 90 % Lymphocytes % 4 % Monocytes % 3 % Eosinophils % 3 % Basophils % 0 % Neutrophils # 12.2 H (1.3-7.7) k/uL Lymphocytes # 0.5 L (1.0-4.8) k/uL Monocytes # 0.4 (0-1.0) k/uL Eosinophils # 0.4 (0-0.7) k/uL Basophils # 0.0 (0-0.2) k/uL Sodium 139 (137-145) mmol/L Potassium 4.4 (3.5-5.1) mmol/L Chloride 107 (98-107) mmol/L Carbon Dioxide 21 L (22-30) mmol/L Anion Gap 11 mmol/L BUN 22 H (9-20) mg/dL Creatinine 1.00 (0.66-1.25) mg/dL Est GFR (CKD-EPI)AfAm >90 (>60 ml/min/1.73 sqM) Est GFR (CKD-EPI)NonAf >90 (>60 ml/min/1.73 sqM) Glucose 131 H (74-99) mg/dL Plasma Lactic Acid Willian 1.3 (0.7-2.0) mmol/L Calcium 9.0 (8.4-10.2) mg/dL Magnesium (1.6-2.3) mg/dL Total Bilirubin 1.3 (0.2-1.3) mg/dL AST 34 (17-59) U/L ALT 23 (4-49) U/L Alkaline Phosphatase 84 (38-126) U/L Total Protein 8.4 H (6.3-8.2) g/dL Albumin 4.8 (3.5-5.0) g/dL Lipase 89 (23-300) U/L Urine Color Urine Appearance (Clear) Urine pH (5.0-8.0) Ur Specific [place] (1.001-1.035) Urine Protein (Negative) Urine Glucose (UA) (Negative) Urine Ketones (Negative) Urine Blood (Negative) Urine Nitrite (Negative) Urine Bilirubin (Negative) Urine Urobilinogen (<2.0) mg/dL Ur Leukocyte Esterase (Negative) Coronavirus (PCR) (Not Detectd) 04/21/21 04/21/21 04/21/21 Range/Units 14:10 14:43 14:43 WBC (3.8-10.6) k/uL RBC (4.30-5.90) m/uL Hgb (13.0-17.5) gm/dL Hct (39.0-53.0) % MCV (80.0-100.0) fL MCH (25.0-35.0) pg MCHC (31.0-37.0) g/dL RDW (11.5-15.5) % Plt Count (150-450) k/uL MPV Neutrophils % % Lymphocytes % % Monocytes % % Eosinophils % % Basophils % % Neutrophils # (1.3-7.7) k/uL Lymphocytes # (1.0-4.8) k/uL Monocytes # (0-1.0) k/uL Eosinophils # (0-0.7) k/uL Basophils # (0-0.2) k/uL Sodium (137-145) mmol/L Potassium (3.5-5.1) mmol/L Chloride (98-107) mmol/L Carbon Dioxide (22-30) mmol/L Anion Gap mmol/L BUN (9-20) mg/dL Creatinine (0.66-1.25) mg/dL Est GFR (CKD-EPI)AfAm (>60 ml/min/1.73 sqM) Est GFR (CKD-EPI)NonAf (>60 ml/min/1.73 sqM) Glucose (74-99) mg/dL Plasma Lactic Acid Willian (0.7-2.0) mmol/L Calcium (8.4-10.2) mg/dL Magnesium 1.3 L (1.6-2.3) mg/dL Total Bilirubin (0.2-1.3) mg/dL AST (17-59) U/L ALT (4-49) U/L Alkaline Phosphatase (38-126) U/L Total Protein (6.3-8.2) g/dL Albumin (3.5-5.0) g/dL Lipase (23-300) U/L Urine Color Yellow Urine Appearance Clear (Clear) Urine pH 5.5 (5.0-8.0) Ur Specific [place] 1.028 (1.001-1.035) Urine Protein Trace H (Negative) Urine Glucose (UA) Negative (Negative) Urine Ketones 1+ H (Negative) Urine Blood Negative (Negative) Urine Nitrite Negative (Negative) Urine Bilirubin Negative (Negative) Urine Urobilinogen <2.0 (<2.0) mg/dL Ur Leukocyte Esterase Negative (Negative) Coronavirus (PCR) Not Detected (Not Detectd) Disposition Clinical Impression: Nausea and vomiting, Diarrhea, Dehydration Disposition: HOME SELF-CARE Condition: Stable Instructions (If sedation given, give patient instructions): Acute Nausea and Vomiting (ED), Acute Diarrhea (ED) Additional Instructions: Return to the emergency department with any new, worsening, or concerning symptoms. Follow-up with primary care provider next 1-2 days. Take Zofran as directed. Stop eating raw eggs for breakfast. Stop all cannabinoid use. Prescriptions: Ondansetron Odt [Zofran ODT] 4 mg PO Q8HR PRN #10 tab PRN Reason: Nausea Is patient prescribed a controlled substance at d/c from ED?: No Referrals: None,Stated [Primary Care Provider] - 1-2 days Jigar Gunter [STAFF PHYSICIAN] - 1-2 days Kevin Andrade MD [STAFF PHYSICIAN] - 1-2 days Tova Lehman NPC [STAFF PHYSICIAN] - 1-2 days Time of Disposition: 15:08
[2021-04-21 13:12] LABS: ALT 23 U/L (4-49); AST 34 U/L (17-59); African American GFR (CKD) >90 (>60 ml/min/1.73 sqM); Albumin 4.8 g/dL (3.5-5.0); Alkaline Phosphatase 84 U/L (38-126); Anion Gap 11 mmol/L; Blood Urea Nitrogen 22 mg/dL (9-20); Carbon Dioxide 21 mmol/L (22-30); Chloride 107 mmol/L (98-107); Glucose 131 mg/dL (74-99); Lipase 89 U/L (23-300); Non-African American GFR(CKD) >90 (>60 ml/min/1.73 sqM); Potassium 4.4 mmol/L (3.5-5.1); Sodium 139 mmol/L (137-145); Total Bilirubin 1.3 mg/dL (0.2-1.3); Total Protein 8.4 g/dL (6.3-8.2)
[2021-04-21] MEDS ORDERED: CAPSAICIN 0.025% CREAM 60 GM TUBE TOPICAL STA (13:48)
[2021-04-21 14:55] LABS: Appearance,Urine Clear (Clear); Bilirubin,Urine Negative (Negative); Blood,Urine Negative (Negative); Color,Urine Yellow; Glucose,Urine (UA) Negative (Negative); Ketones,Urine 1+ (Negative); Leukocyte Esterase,Urine Negative (Negative); Nitrite,Urine Negative (Negative); PH, Urine 5.5 (5.0-8.0); Protein,Urine Trace (Negative); Specific Gravity,Urine 1.028 (1.001-1.035); Urobilinogen,Urine <2.0 mg/dL (<2.0)
[2021-04-21] MEDS ORDERED: KETOROLAC 15 MG/ML 1 ML VIAL IVP STA (14:55)
[2021-04-21] MEDS ORDERED: METOCLOPRAMIDE 5 MG/ML 2 ML VIAL IVP STA (15:09)
[2021-04-21 15:24] VITALS: BP 127/84; PULSE 89; RESP 18
== END 2021-04-21 15:24 | disposition home or self-care (01) ==
LOC: EC 12:20
DX: R11.2 Nausea with vomiting, unspecified (principal); R19.7 Diarrhea, unspecified; E86.0 Dehydration; R10.84 Generalized abdominal pain; Z20.822 Contact with and (suspected) exposure to COVID-19; F17.200 Nicotine dependence, unspecified, uncomplicated; J45.909 Unspecified asthma, uncomplicated; Z88.0 Allergy status to penicillin; Z88.1 Allergy status to other antibiotic agents; Z88.8 Allergy status to other drugs, medicaments and biological substances
CPT/HCPCS: 36415; 80053; 83605; 83690; 83735; 85025; 81003; 87635; 99284; 96374; 96375; 96361; J2765; J2405; J1885

== ENCOUNTER → 2021-07-25 | Outpatient (CLI) | payer BC, OTHER ==
--- NOTE | 2021-07-25 12:23 | XR ---
EXAMINATION TYPE: XR chest 2V DATE OF EXAM: 07/25/2021 COMPARISON: 02/03/2020 HISTORY: COUGH [id number] TECHNIQUE: Frontal and lateral views of the chest are obtained. FINDINGS: There is no focal air space opacity, pleural effusion, or pneumothorax seen. The cardiac silhouette size is within normal limits. The osseous structures are intact. IMPRESSION: No acute cardiopulmonary process.
== END | disposition home or self-care (01) ==
LOC: RADXRMAIN 11:16
PROVIDERS: ATTEND Internal Medicine
DX: R05.9 Cough, unspecified (principal)
CPT/HCPCS: 71046

== ENCOUNTER → 2022-07-01 | Outpatient (CLI) | payer BC ==
--- NOTE | 2022-07-01 11:55 | XR ---
EXAMINATION TYPE: XR wrist limited LT DATE OF EXAM: 07/01/2022 CLINICAL HISTORY: Pain. Twisting injury 2 weeks ago. TECHNIQUE: Frontal and lateral images of the left wrist are obtained. COMPARISON: None FINDINGS: There is no acute fracture/dislocation evident in the left wrist. The joint spaces in the left wrist appear within normal limits. The overlying soft tissue appears unremarkable. IMPRESSION: As above.
== END | disposition home or self-care (01) ==
LOC: RADXRMAIN 11:35
PROVIDERS: ATTEND Internal Medicine
DX: M25.532 Pain in left wrist (principal)

== ENCOUNTER → 2022-07-01 | Outpatient (CLI) | payer BC ==
[2022-07-02 08:08] LABS: HCT 54.1 % (39.6-50.0); HGB 17.2 g/dL (13.0-17.0); MCH 26.7 pg (27.0-32.0); MCHC 31.8 g/dL (32.0-37.0); MCV 84.1 fL (80.0-97.0); Mean Platelet Volume 11.8 fL (9.5-12.2); NRBC Per 100 WBC 0 /100 WBCS (0.0-0.0); Platelet Count 106 X 10*3/uL (140-440); RBC 6.43 X 10*6/uL (4.40-5.60); RDW 13.8 % (11.5-14.5); WBC 5.88 X 10*3/uL (4.50-10.00)
[2022-07-02 11:28] LABS: Chol/HDL Ratio 4.39 Ratio; LDL Cholesterol,Calculated 99.6 mg/dL (0.0-131.0); VLDL Calculation 14.72 mg/dL (5.00-40.00)
[2022-07-02 11:44] LABS: Testosterone >1500.00 ng/mL (123.06-813.86)
== END | disposition home or self-care (01) ==
LOC: LABWHC1 11:09
PROVIDERS: ATTEND Internal Medicine
DX: Z92.23 Personal history of estrogen therapy (principal)
CPT/HCPCS: 36415; 80061; 82672; 84146; 84403; 85027

== ENCOUNTER → 2023-05-29 | Outpatient (CLI) | payer BC ==
--- NOTE | 2023-05-29 14:02 | US ---
EXAMINATION TYPE: US abdomen limited DATE OF EXAM: 05/29/2023 COMPARISON: NONE CLINICAL INDICATION: Male, 23 years old with history of K42.9 UMBILICAL HERNIA WITHOUT OBSTRUCTION OR GANG; Patient states change in appearance of umbilicus x 1 year. Power lifts. Assess for hernia at location of: Umbilicus TECHNIQUE: Real-time scanning was performed by the production clerk utilizing Valsalva and additional dyn amic maneuvers to assess for hernia. Secondary Market Manager notes: Patients area of concern scanned. Possible umbilical hernia visualized with valsa lva movements = 0.8 cm. Suboptimal visualization due to shadowing within umbilicus. IMPRESSION: Tiny 8 mm area of movement on Valsalva maneuver at the umbilicus could represent a tiny umbilical her rex.
== END | disposition home or self-care (01) ==
LOC: RADUSWWP 12:44
PROVIDERS: ATTEND Family Medicine
DX: K42.9 Umbilical hernia without obstruction or gangrene (principal)
CPT/HCPCS: 76705

== ENCOUNTER → 2023-06-04 | Outpatient (CLI) | payer BC, OTHER ==
--- NOTE | 2023-06-05 12:03 | CT ---
EXAMINATION TYPE: CT abdomen pelvis w con DATE OF EXAM: 06/04/2023 COMPARISON: None HISTORY: R10.32 LLQ pain CONTRAST: CT scan of the abdomen and pelvis is performed with Oral Contrast and with IV Contrast, patient injec brina with 100 mL of Isovue 300. FINDINGS: LUNG BASES-: No visible nodule. No infiltrate. LIVER/GB: No calcified gallstones. No space occupying hepatic lesion. Biliary tree is of normal ca liber. PANCREAS: No inflammation. No distinct mass. SPLEEN: No splenic enlargement. No lesion seen. ADRENALS: No nodule. No thickening. KIDNEYS/BLADDER: No hydronephrosis. No nephrolithiasis. No distinct renal mass. Urinary bladder g rossly unremarkable. BOWEL: Normal appendix. Normal bowel caliber. No inflammation. GENITAL ORGANS: No gross abnormality. LYMPH NODES: No greater than 1cm abdominal or pelvic lymph nodes are appreciated. AORTA: No significant abnormality. OSSEOUS STRUCTURES: No significant abnormality is seen. OTHER: No significant additional abnormality is seen. IMPRESSION: 1. No discrete abnormality seen.
== END | disposition home or self-care (01) ==
LOC: RADCTMAIN 07:57
PROVIDERS: ATTEND Family Medicine
DX: R10.32 Left lower quadrant pain (principal)
CPT/HCPCS: 74177; Q9967